=== PATIENT | male | born 1950 | race African-American/Black ===

== ENCOUNTER 2017-05-13 10:51 | Emergency (ER) | payer OTHER, MEDICAID ==
[~2017-05-13] VITALS: Ht 180.3 cm; Wt 77.0 kg
[2017-05-13 11:02] VITALS: BP 169/78
== END 2017-05-13 18:14 | disposition left against medical advice (07) ==
LOC: ER 13:10
DX: R06.02 Shortness of breath (principal); Z53.21 Procedure and treatment not carried out due to patient leaving prior to being seen by health care provider

== ENCOUNTER 2017-11-22 09:02 | Emergency (ER) | payer OTHER, MEDICAID ==
[~2017-11-22] VITALS: Ht 180.3 cm; Wt 81.6 kg
[2017-11-22] MEDS ORDERED: IBUPROFEN 600MG TABLET PO ONE (12:15)
[2017-11-22 12:19] VITALS: BP 167/84
== END 2017-11-22 12:27 | disposition home or self-care (01) ==
LOC: ER 09:02
DX: M54.30 Sciatica, unspecified side (principal); I11.9 Hypertensive heart disease without heart failure; I25.2 Old myocardial infarction; Z86.73 Personal history of transient ischemic attack (TIA), and cerebral infarction without residual deficits; Z98.61 Coronary angioplasty status; Z87.891 Personal history of nicotine dependence
CPT/HCPCS: 99282

== ENCOUNTER 2018-03-25 10:30 | Emergency (ER) | payer OTHER, MEDICAID ==
[~2018-03-25] VITALS: Ht 180.3 cm; Wt 82.0 kg
[2018-03-25 10:34] VITALS: BP 163/99
== END 2018-03-25 11:31 | disposition left against medical advice (07) ==
LOC: ER 10:30 → CANBEDREQ 13:53
DX: I10 Essential (primary) hypertension (principal); R07.89 Other chest pain; R06.00 Dyspnea, unspecified; R06.02 Shortness of breath; I51.9 Heart disease, unspecified; Z98.61 Coronary angioplasty status
CPT/HCPCS: 99281

== ENCOUNTER 2018-03-28 20:23 | Inpatient (IN) | payer OTHER, MEDICAID ==
[~2018-03-28] VITALS: Ht 180.3 cm; Wt 82.6 kg
[2018-03-28] MEDS ORDERED: NITROGLYCERIN 0.4MG TABLET SL SL ONE (21:00)
[2018-03-28] MEDS ORDERED: HYDROCODONE/ACETAMINOPHEN 5/325MG TABLET PO ONE (22:15)
[2018-03-28 23:03] LABS: BASOPHILS % 0.8 % (0.0-2.0); CHLORIDE 104 mEq/L (98-107); HEMATOCRIT. 41.9 % (42.0-52.0); HEMOGLOBIN. 13.5 g/dL (14.0-18.0); LYMPHOCYTES % 36.2 % (20.0-50.0); MEAN CORPUSCULAR VOLUME 86.6 fL (80.0-94.0); MEAN PLATELET VOLUME 9.7 fl (7.4-10.4); MONOCYTES % 14.1 % (2.0-8.0); NEUTROPHILS % 46.9 % (40.0-76.0); PLATELET 205 x1000/uL (130-400); RED BLOOD CELL COUNT 4.84 mill/uL (4.7-6.1); RED CELL DISTRIBUTION WIDTH 15.9 % (11.6-14.6)
[2018-03-28 23:06] LABS: PROTHROMBIN TIME 10.5 sec (9.1-11.1)
[2018-03-28] MEDS ORDERED: ASPIRIN 81MG TABLET PO ONE (23:15)
[2018-03-29 02:12] VITALS: BP 149/79
[2018-03-29 04:00] VITALS: BP 153/84
[2018-03-29] MEDS ORDERED: CLONIDINE 0.1MG TABLET PO PRN (05:00)
[2018-03-29] MEDS ORDERED: ZOLPIDEM TARTRATE 5MG TABLET PO PRN (05:00)
[2018-03-29] MEDS: HYDROCODONE/ACETAMINOPHEN 5/325MG TABLET PO PRN ×2 (05:05→09:36)
[2018-03-29 08:00] VITALS: BP 160/81
[2018-03-29] MEDS ORDERED: ENOXAPARIN 40MG/0.4ML SYR SUBCUT SCH (09:00)
[2018-03-29] MEDS ORDERED: ASPIRIN 81MG TABLET PO SCH (09:00)
[2018-03-29 09:31] LABS: BASOPHILS % 0.4 % (0.0-2.0); EOSINOPHILS % 1.3 % (0.0-5.0); HEMATOCRIT. 38.8 % (42.0-52.0); HEMOGLOBIN. 12.5 g/dL (14.0-18.0); LYMPHOCYTES % 32.9 % (20.0-50.0); MEAN CORPUSCULAR HEMOGLOBIN 27.8 pg (28.0-32.0); MEAN CORPUSCULAR VOLUME 86.1 fL (80.0-94.0); MEAN PLATELET VOLUME 9.6 fl (7.4-10.4); MONOCYTES % 14.6 % (2.0-8.0); NEUTROPHILS % 50.8 % (40.0-76.0); PLATELET 203 x1000/uL (130-400); RED BLOOD CELL COUNT 4.51 mill/uL (4.7-6.1); RED CELL DISTRIBUTION WIDTH 15.5 % (11.6-14.6)
[2018-03-29 09:45] LABS: CHLORIDE 106 mEq/L (98-107)
[2018-03-29 09:56] LABS: CREATINE KINASE MB FRACTION 1.1 ng/mL (0.5-3.6)
[2018-03-29 09:58] LABS: CREATINE KINASE 325 IU/L (39-308); LDL CHOLESTEROL 123 mg/dL (5-100)
[2018-03-29 10:00] LABS: HDL CHOLESTEROL 65 mg/dL (40-59)
[2018-03-29] MEDS ORDERED: ASPI-1160 PO (11:12)
[2018-03-29] MEDS ORDERED: ATOR20TA65 MT (11:12)
[2018-03-29] MEDS ORDERED: LEVO750T21 MT (11:12)
[2018-03-29] MEDS ORDERED: AMLO5TAB88 MT (11:12)
[2018-03-29] MEDS ORDERED: AMLODIPINE 5MG TABLET PO SCH (11:15)
[2018-03-29 11:48] VITALS: BP 153/76
[2018-03-29 12:48] LABS: CLARITY URINE CLEAR (CLEAR); COLOR URINE YELLOW (YELLOW); KETONES URINE NEGATIVE (NEGATIVE); LEUKOCYTE ESTERASE URINE NEGATIVE (NEGATIVE); NITRITE URINE NEGATIVE (NEGATIVE); OCCULT BLOOD URINE 2+ (NEGATIVE); PH URINE 6.5 (4.5-8.0); PROTEIN URINE 2+ (NEGATIVE); SPECIFIC GRAVITY URINE 1.017 (1.005-1.030)
[2018-03-29] MEDS ORDERED: LEVOFLOXACIN 750MG PREMIX 150 ML IV SCH (13:00)
[2018-03-29 13:08] LABS: *AMPHETAMINES SCREEN URINE NEGATIVE (NEGATIVE); *BARBITURATES SCREEN URINE NEGATIVE (NEGATIVE)
[2018-03-29 13:09] LABS: *BENZODIAZEPINES SCREEN URINE NEGATIVE (NEGATIVE); *COCAINE SCREEN URINE NEGATIVE (NEGATIVE); CANNABINOID URINE SCREEN PRESUMTIVE POSITIVE (NEGATIVE); METHADONE URINE SCREEN NEGATIVE (NEGATIVE); OPIATES URINE SCREEN PRESUMTIVE POSITIVE (NEGATIVE); PHENCYCLIDINE URINE SCREEN NEGATIVE (NEGATIVE)
[2018-03-29 16:00] VITALS: BP 147/88
[2018-03-29 16:40] LABS: CREATINE KINASE 302 IU/L (39-308)
[2018-03-29 16:42] LABS: CREATINE KINASE MB FRACTION < 1.0 ng/mL (0.5-3.6)
[2018-03-29 16:47] VITALS: BP 147/88
[2018-03-29] MEDS ORDERED: ATORVASTATIN CALCIUM 20MG TABLET PO SCH (21:00)
== END 2018-03-29 17:23 | disposition home or self-care (01) | DRG 194 ==
LOC: ER 20:23 → 7WST 03-29 00:20 → EDBEDREQDT 03-29 01:05 → EDBEDREQ 03-29 01:05 → EDBEDREQTM 03-29 01:05 → ENRESERV 03-29 01:21
PROVIDERS: ADMIT Internal Medicine; ATTEND Internal Medicine
DX: J18.9 Pneumonia, unspecified organism (principal); J44.0 Chronic obstructive pulmonary disease with (acute) lower respiratory infection; E78.5 Hyperlipidemia, unspecified; F12.90 Cannabis use, unspecified, uncomplicated; I10 Essential (primary) hypertension; R73.03 Prediabetes; I16.0 Hypertensive urgency; I25.2 Old myocardial infarction; Z87.891 Personal history of nicotine dependence; Z79.899 Other long term (current) drug therapy; Z79.82 Long term (current) use of aspirin
CPT/HCPCS: 36415; 71045; 76700; 80048; 80061; 80305; 82550; 82553; 83735; 83880; 84443; 84484; 93005; 93970; 99285; J1650; J1956; J7050

== ENCOUNTER 2018-06-03 12:08 | Emergency (ER) | payer OTHER, MEDICAID ==
[~2018-06-03] VITALS: Ht 180.3 cm; Wt 87.0 kg
[~2018-06-03 12:08] MED LIST: AMLO5TAB88 MT; ASPI-1160 PO; ATOR20TA65 MT; LEVO750T21 MT
[2018-06-03] MEDS ORDERED: NITROGLYCERIN 0.4MG TABLET SL SL PRN (13:30)
[2018-06-03] MEDS ORDERED: ASPIRIN 81MG TABLET PO ONE (13:30)
[2018-06-03 13:54] LABS: BASOPHILS % 0.6 % (0.0-2.0); HEMATOCRIT. 38.6 % (42.0-52.0); HEMOGLOBIN. 12.7 g/dL (14.0-18.0); LYMPHOCYTES % 45.7 % (20.0-50.0); MEAN CORPUSCULAR HEMOGLOBIN 28.1 pg (28.0-32.0); MEAN CORPUSCULAR VOLUME 85.4 fL (80.0-94.0); MEAN PLATELET VOLUME 9.8 fl (7.4-10.4); MONOCYTES % 9.5 % (2.0-8.0); NEUTROPHILS % 40.2 % (40.0-76.0); PLATELET 179 x1000/uL (130-400); RED BLOOD CELL COUNT 4.52 mill/uL (4.7-6.1); RED CELL DISTRIBUTION WIDTH 16.6 % (11.6-14.6)
[2018-06-03 13:59] LABS: CHLORIDE 108 mEq/L (98-107)
[2018-06-03 14:30] LABS: D-DIMER 1.53 mg/L FEU (<0.50); INR 1.1; PARTIAL THROMBOPLASTIN TIME 32.6 sec (23.4-31.0); PROTHROMBIN TIME 10.7 sec (9.1-11.1)
[2018-06-03] MEDS ORDERED: IOHEXOL-350 100 ML BOTTLE ONE (17:21)
[2018-06-03 19:29] VITALS: BP 158/88
== END 2018-06-03 20:53 | disposition left against medical advice (07) ==
LOC: ER 12:08 → ENRESERV 21:09 → CANRESERV 21:09 → CANBEDREQ 22:53
DX: C79.51 Secondary malignant neoplasm of bone (principal); R07.89 Other chest pain; I11.9 Hypertensive heart disease without heart failure; F12.10 Cannabis abuse, uncomplicated; Z98.62 Peripheral vascular angioplasty status; Z79.82 Long term (current) use of aspirin; Z79.899 Other long term (current) drug therapy; Z98.890 Other specified postprocedural states
CPT/HCPCS: 36415; 71045; 71275; 80053; 83880; 84484; 85025; 85379; 85610; 85730; 93005; 99284; Q9967

== ENCOUNTER 2018-07-22 18:05 | Emergency (ER) | payer OTHER, MEDICAID ==
[~2018-07-22] VITALS: Ht 177.8 cm; Wt 75.0 kg
[2018-07-22 18:25] VITALS: BP 143/106
== END 2018-07-23 00:29 | disposition left against medical advice (07) ==
LOC: ER 18:05
DX: R10.9 Unspecified abdominal pain (principal); Z53.21 Procedure and treatment not carried out due to patient leaving prior to being seen by health care provider
CPT/HCPCS: 93005